=== PATIENT | female | born 1980 | race Two or more races ===

== ENCOUNTER 2021-01-23 17:10 | Observation (INO) | payer MEDICAID, OTHER ==
[2021-01-23] MEDS ORDERED: PREN-96 PO (17:55)
== END 2021-01-23 18:04 | disposition home or self-care (01) ==
LOC: LDRP 17:10
PROVIDERS: ADMIT Specialist; ATTEND Specialist
DX: O26.892 Other specified pregnancy related conditions, second trimester (principal); O99.612 Diseases of the digestive system complicating pregnancy, second trimester; R19.7 Diarrhea, unspecified; Z3A.22 22 weeks gestation of pregnancy
CPT/HCPCS: 59025; 81002; G0378